=== PATIENT | female | born 1935 | race African-American/Black ===

== ENCOUNTER 2022-04-20 07:31 | Inpatient (IN) | payer MEDICARE, MEDICAID ==
[~2022-04-20] VITALS: Ht 170.2 cm; Wt 78.5 kg
[~2022-04-20 07:31] MED LIST: METF-414 PO; UNK HTN MED
[2022-04-20] MEDS ORDERED: SODIUM CHLORIDE 0.9% 1000ML BAG (SEPSIS BOLUS) IV ONE (08:30)
[2022-04-20 11:27] LABS: PROTHROMBIN TIME 10.3 sec (9.6-11.0)
[2022-04-20] MEDS ORDERED: PIPERACILLIN/TAZ 3.375G PREMIX 50 ML IV ONE (11:45)
[2022-04-20] MEDS ORDERED: VANCOMYCIN 1G PREMIX 200 ML IV ONE (11:45)
[2022-04-20 11:46] LABS: BASOPHILS % 0.4 % (0.0-2.0); HEMATOCRIT. 39.4 % (36.0-48.0); MEAN CORPUSCULAR HEMOGLOBIN 29.8 pg (28.0-32.0); MEAN CORPUSCULAR VOLUME 90.4 fL (81.0-99.0); MEAN PLATELET VOLUME 8.4 fl (7.4-10.4); MONOCYTES % 6.1 % (2.0-8.0); NEUTROPHILS % 78.5 % (40.0-76.0); PLATELET 244 x1000/uL (130-400); RED BLOOD CELL COUNT 4.35 mill/uL (4.2-5.4); RED CELL DISTRIBUTION WIDTH 12.8 % (11.6-14.6)
[2022-04-20 11:53] LABS: CHLORIDE 99 mEq/L (98-107)
[2022-04-20 15:37] VITALS: BP 112/53
[2022-04-20 16:00] VITALS: BP 112/53
[2022-04-20] MEDS ORDERED: ACETAMINOPHEN 325MG TABLET PO PRN (16:30)
[2022-04-20] MEDS ORDERED: ONDANSETRON HCL 4MG/2ML INJ IV PRN (16:30)
[2022-04-20] MEDS ORDERED: DEXTROSE 50% WATER 50ML SYRINGE IV PRN (16:30)
[2022-04-20] MEDS ORDERED: CLONIDINE 0.1MG TABLET PO PRN (16:30)
[2022-04-20] MEDS: PANTOPRAZOLE SODIUM 40 MG/VIAL IV SCH (17:21)
[2022-04-20] MEDS: SODIUM CHLORIDE 0.9% 1,000 ML IV SCH (17:23)
[2022-04-20] MEDS: BLOOD SUGAR DIAGNOSTIC STRIP TEST SCH ×2 (17:33→21:48)
[2022-04-20] MEDS: GABAPENTIN 100MG CAPSULE PO SCH ×2 (17:49→22:06)
[2022-04-20] MEDS: INSULIN LISPRO 100 UNITS/ML SUBCUT SCH ×2 (17:49→22:03)
[2022-04-20] MEDS: CEFTRIAXONE 1,000 MG in DEXTROSE 5% WATER 50 ML IV SCH (18:15)
[2022-04-20 19:22] LABS: T4 FREE 1.27 ng/dL (0.76-1.46)
[2022-04-20 20:00] VITALS: BP 113/57
[2022-04-20] MEDS: ENOXAPARIN 40MG/0.4ML SYR SUBCUT SCH (21:48)
[2022-04-21] VITALS: BP 98/50
[2022-04-21 00:42] LABS: CREATINE KINASE MB FRACTION 2.7 ng/mL (0.5-3.6)
[2022-04-21 04:00] VITALS: BP 159/70
[2022-04-21] MEDS: BLOOD SUGAR DIAGNOSTIC STRIP TEST SCH ×4 (06:22→21:32)
[2022-04-21] MEDS: GABAPENTIN 100MG CAPSULE PO SCH ×3 (06:22→21:32)
[2022-04-21 08:00] VITALS: BP 120/56
[2022-04-21] MEDS: PANTOPRAZOLE SODIUM 40 MG/VIAL IV SCH (08:16)
[2022-04-21] MEDS: INSULIN LISPRO 100 UNITS/ML SUBCUT SCH ×4 (08:17→21:32)
[2022-04-21] MEDS: SODIUM CHLORIDE 0.9% 1,000 ML IV SCH ×2 (10:21→17:20)
[2022-04-21 11:33] LABS: BASOPHILS % 0.5 % (0.0-2.0); EOSINOPHILS % 0.4 % (0.0-5.0); HEMATOCRIT. 37.1 % (36.0-48.0); HEMOGLOBIN. 12.2 g/dL (12.0-16.0); LYMPHOCYTES % 49.4 % (20.0-50.0); MEAN CORPUSCULAR HEMOGLOBIN 29.8 pg (28.0-32.0); MEAN CORPUSCULAR VOLUME 90.1 fL (81.0-99.0); MEAN PLATELET VOLUME 8.9 fl (7.4-10.4); MONOCYTES % 10.7 % (2.0-8.0); PLATELET 229 x1000/uL (130-400); RED BLOOD CELL COUNT 4.11 mill/uL (4.2-5.4); RED CELL DISTRIBUTION WIDTH 12.9 % (11.6-14.6)
[2022-04-21 12:00] VITALS: BP_SYST 113; BP_SYST 98; BP_DIAS 38; BP_DIAS 48; BP_DIAS 51
[2022-04-21 12:02] LABS: CHLORIDE 102 mEq/L (98-107)
[2022-04-21 12:20] LABS: CREATINE KINASE 225 IU/L (26-192); CREATINE KINASE MB FRACTION 1.7 ng/mL (0.5-3.6); HDL CHOLESTEROL 54 mg/dL (40-59); LDL CHOLESTEROL 59 mg/dL (5-100)
[2022-04-21 12:40] LABS: VITAMIN B12 SERUM 1159 pg/mL (211-911)
[2022-04-21 13:35] LABS: CLARITY URINE CLEAR (CLEAR); COLOR URINE YELLOW (YELLOW); KETONES URINE TRACE (NEGATIVE); LEUKOCYTE ESTERASE URINE TRACE (NEGATIVE); NITRITE URINE NEGATIVE (NEGATIVE); OCCULT BLOOD URINE NEGATIVE (NEGATIVE); PH URINE 5.5 (4.5-8.0); PROTEIN URINE NEGATIVE (NEGATIVE); SPECIFIC GRAVITY URINE 1.017 (1.005-1.030)
[2022-04-21 15:03] LABS: *AMPHETAMINES SCREEN URINE NEGATIVE (NEGATIVE); *BARBITURATES SCREEN URINE NEGATIVE (NEGATIVE); *BENZODIAZEPINES SCREEN URINE NEGATIVE (NEGATIVE); *COCAINE SCREEN URINE NEGATIVE (NEGATIVE); CANNABINOID URINE SCREEN NEGATIVE (NEGATIVE); METHADONE URINE SCREEN NEGATIVE (NEGATIVE); OPIATES URINE SCREEN NEGATIVE (NEGATIVE); PHENCYCLIDINE URINE SCREEN NEGATIVE (NEGATIVE)
[2022-04-21 16:00] VITALS: BP 113/52
[2022-04-21] MEDS: CEFTRIAXONE 1,000 MG in DEXTROSE 5% WATER 50 ML IV SCH (17:19)
[2022-04-21 20:00] VITALS: BP_SYST 119; BP_SYST 126; BP_DIAS 48; BP_DIAS 54
[2022-04-21] MEDS: TEMAZEPAM 15MG CAPSULE PO PRN (21:32)
[2022-04-21] MEDS: ENOXAPARIN 40MG/0.4ML SYR SUBCUT SCH (21:32)
[2022-04-22] VITALS: BP 103/48
[2022-04-22 04:00] VITALS: BP 107/53
[2022-04-22] MEDS: DOCUSATE SODIUM 250MG CAPSULE PO PRN ×2 (05:28→12:47)
[2022-04-22] MEDS: GABAPENTIN 100MG CAPSULE PO SCH ×3 (05:28→21:19)
[2022-04-22 06:42] LABS: BASOPHILS % 0.4 % (0.0-2.0); EOSINOPHILS % 0.9 % (0.0-5.0); HEMATOCRIT. 36.5 % (36.0-48.0); HEMOGLOBIN. 12.3 g/dL (12.0-16.0); LYMPHOCYTES % 62.2 % (20.0-50.0); MEAN CORPUSCULAR HEMOGLOBIN 30.2 pg (28.0-32.0); MEAN CORPUSCULAR VOLUME 90.1 fL (81.0-99.0); MEAN PLATELET VOLUME 9.4 fl (7.4-10.4); MONOCYTES % 8.1 % (2.0-8.0); NEUTROPHILS % 28.4 % (40.0-76.0); PLATELET 237 x1000/uL (130-400); RED BLOOD CELL COUNT 4.05 mill/uL (4.2-5.4); RED CELL DISTRIBUTION WIDTH 12.7 % (11.6-14.6)
[2022-04-22 06:50] LABS: CHLORIDE 105 mEq/L (98-107)
[2022-04-22] MEDS: BLOOD SUGAR DIAGNOSTIC STRIP TEST SCH ×4 (07:10→21:00)
[2022-04-22 08:00] VITALS: BP_SYST 101; BP_SYST 108; BP_SYST 97; BP_DIAS 34; BP_DIAS 71; BP_DIAS 72
[2022-04-22] MEDS: PANTOPRAZOLE SODIUM 40 MG/VIAL IV SCH (08:21)
[2022-04-22] MEDS: INSULIN LISPRO 100 UNITS/ML SUBCUT SCH ×4 (08:24→21:21)
[2022-04-22] MEDS: SODIUM CHLORIDE 0.9% 1,000 ML IV SCH ×2 (09:45→18:12)
[2022-04-22 12:00] VITALS: BP 108/45
[2022-04-22 16:00] VITALS: BP 121/52
[2022-04-22] MEDS: CEFTRIAXONE 1,000 MG in DEXTROSE 5% WATER 50 ML IV SCH (17:01)
[2022-04-22 20:00] VITALS: BP_SYST 107; BP_SYST 115; BP_SYST 135; BP_DIAS 51; BP_DIAS 54; BP_DIAS 60
[2022-04-22] MEDS: TEMAZEPAM 15MG CAPSULE PO PRN (21:19)
[2022-04-22] MEDS: ENOXAPARIN 40MG/0.4ML SYR SUBCUT SCH (21:20)
[2022-04-23] VITALS: BP 133/66
[2022-04-23 04:00] VITALS: BP 137/62
[2022-04-23] MEDS: GABAPENTIN 100MG CAPSULE PO SCH ×3 (06:05→21:51)
[2022-04-23] MEDS: SODIUM CHLORIDE 0.9% 1,000 ML IV SCH ×2 (06:05→21:10)
[2022-04-23] MEDS: INSULIN LISPRO 100 UNITS/ML SUBCUT SCH ×4 (06:06→21:52)
[2022-04-23] MEDS: BLOOD SUGAR DIAGNOSTIC STRIP TEST SCH ×4 (06:06→21:00)
[2022-04-23 07:01] LABS: BASOPHILS % 0.4 % (0.0-2.0); EOSINOPHILS % 1.1 % (0.0-5.0); HEMOGLOBIN. 11.5 g/dL (12.0-16.0); LYMPHOCYTES % 59.7 % (20.0-50.0); MEAN CORPUSCULAR HEMOGLOBIN 30.4 pg (28.0-32.0); MEAN CORPUSCULAR VOLUME 89.9 fL (81.0-99.0); MEAN PLATELET VOLUME 9.4 fl (7.4-10.4); MONOCYTES % 9.1 % (2.0-8.0); NEUTROPHILS % 29.7 % (40.0-76.0); PLATELET 227 x1000/uL (130-400); RED BLOOD CELL COUNT 3.78 mill/uL (4.2-5.4); RED CELL DISTRIBUTION WIDTH 12.4 % (11.6-14.6)
[2022-04-23 07:47] LABS: CHLORIDE 103 mEq/L (98-107)
[2022-04-23 08:00] VITALS: BP 115/65
[2022-04-23] MEDS: PANTOPRAZOLE SODIUM 40 MG/VIAL IV SCH (08:56)
[2022-04-23] MEDS ORDERED: MECLIZINE 12.5MG TABLET PO PRN (11:00)
[2022-04-23 11:13] VITALS: BP_SYST 101; BP_SYST 114; BP_SYST 133; BP_DIAS 60; BP_DIAS 68; BP_DIAS 75
[2022-04-23] MEDS ORDERED: SODIUM CHLORIDE 0.9% 500 ML IV NR (14:30)
[2022-04-23 16:00] VITALS: BP 141/65
[2022-04-23] MEDS: CEFTRIAXONE 1,000 MG in DEXTROSE 5% WATER 50 ML IV SCH (17:50)
[2022-04-23 20:00] VITALS: BP 140/68
[2022-04-23] MEDS: ENOXAPARIN 40MG/0.4ML SYR SUBCUT SCH (21:51)
[2022-04-23] MEDS: TEMAZEPAM 15MG CAPSULE PO PRN (21:52)
[2022-04-23] MEDS: DOCUSATE SODIUM 250MG CAPSULE PO PRN (22:43)
[2022-04-24] VITALS (7 sets, daily range): BP systolic 99–134; BP diastolic 54–86
[2022-04-24] MEDS: GABAPENTIN 100MG CAPSULE PO SCH ×3 (05:53→21:39)
[2022-04-24] MEDS: BLOOD SUGAR DIAGNOSTIC STRIP TEST SCH ×4 (06:34→21:00)
[2022-04-24] MEDS: SODIUM CHLORIDE 0.9% 1,000 ML IV SCH ×2 (07:21→22:17)
[2022-04-24] MEDS: INSULIN LISPRO 100 UNITS/ML SUBCUT SCH ×4 (07:22→21:00)
[2022-04-24 07:37] LABS: CHLORIDE 107 mEq/L (98-107)
[2022-04-24 08:07] LABS: BASOPHILS % 0.5 % (0.0-2.0); EOSINOPHILS % 1.5 % (0.0-5.0); HEMATOCRIT. 34.2 % (36.0-48.0); HEMOGLOBIN. 11.1 g/dL (12.0-16.0); LYMPHOCYTES % 66.3 % (20.0-50.0); MEAN CORPUSCULAR HEMOGLOBIN 29.6 pg (28.0-32.0); MEAN CORPUSCULAR VOLUME 91.1 fL (81.0-99.0); MEAN PLATELET VOLUME 9.7 fl (7.4-10.4); NEUTROPHILS % 24.7 % (40.0-76.0); PLATELET 229 x1000/uL (130-400); RED BLOOD CELL COUNT 3.76 mill/uL (4.2-5.4); RED CELL DISTRIBUTION WIDTH 12.4 % (11.6-14.6)
[2022-04-24] MEDS: PANTOPRAZOLE SODIUM 40 MG/VIAL IV SCH (09:17)
[2022-04-24] MEDS: DOCUSATE SODIUM 250MG CAPSULE PO PRN (18:35)
[2022-04-24] MEDS: CEFTRIAXONE 1,000 MG in DEXTROSE 5% WATER 50 ML IV SCH (18:35)
[2022-04-24] MEDS: ENOXAPARIN 40MG/0.4ML SYR SUBCUT SCH (21:38)
[2022-04-24] MEDS: TEMAZEPAM 15MG CAPSULE PO PRN (22:55)
[2022-04-25] VITALS: BP 132/64
[2022-04-25 04:00] VITALS: BP 121/80
[2022-04-25] MEDS: BLOOD SUGAR DIAGNOSTIC STRIP TEST SCH ×3 (06:11→17:40)
[2022-04-25] MEDS: GABAPENTIN 100MG CAPSULE PO SCH ×2 (06:11→13:17)
[2022-04-25 08:00] VITALS: BP 90/40
[2022-04-25] MEDS: INSULIN LISPRO 100 UNITS/ML SUBCUT SCH ×3 (08:10→18:04)
[2022-04-25] MEDS: PANTOPRAZOLE SODIUM 40 MG/VIAL IV SCH (08:55)
[2022-04-25] MEDS: SODIUM CHLORIDE 0.9% 1,000 ML IV SCH (08:57)
[2022-04-25 12:00] VITALS: BP 103/53
[2022-04-25 16:00] VITALS: BP 135/73
[2022-04-25] MEDS: CEFTRIAXONE 1,000 MG in DEXTROSE 5% WATER 50 ML IV SCH (18:00)
[2022-04-25 18:05] VITALS: BP 135/73
[2022-04-26] MEDS ORDERED: FAMOTIDINE 20MG TABLET PO SCH (09:00)
== END 2022-04-25 19:15 | disposition home or self-care (01) | DRG 74 ==
LOC: ER 08:00 → 7WST 13:15 → ENRESERV 14:03
PROVIDERS: ADMIT Internal Medicine; ATTEND Internal Medicine
DX: G90.8 Other disorders of autonomic nervous system (principal); E87.1 Hypo-osmolality and hyponatremia; R00.1 Bradycardia, unspecified; I10 Essential (primary) hypertension; G47.30 Sleep apnea, unspecified; E11.40 Type 2 diabetes mellitus with diabetic neuropathy, unspecified; E78.5 Hyperlipidemia, unspecified; G47.33 Obstructive sleep apnea (adult) (pediatric); R29.6 Repeated falls; Z90.11 Acquired absence of right breast and nipple; Z85.3 Personal history of malignant neoplasm of breast; Z79.899 Other long term (current) drug therapy
CPT/HCPCS: 36415; 70551; 71045; 80048; 80053; 80061; 80305; 81003; 82550; 82553; 82607; 82962; 83036; 83605; 84145; 84439; 84443; 84481; 84484; 85025; 85379; 93005; 93306; 93880; 93970; 95816; 97116; 97161; 99285; C1893; C9113; J0696; J1650; J1815; J2543; J3370; J7030; J7040; J7060; J8597